=== PATIENT | female | born 1990 | race Caucasian/White ===

== ENCOUNTER 2018-10-16 12:45 | Emergency (ER) | payer OTHER ==
[~2018-10-16] VITALS: Ht 170.2 cm; Wt 92.1 kg
[2018-10-16] MEDS ORDERED: WELLBUTRIN 75 M75 M1 PO (13:12)
[2018-10-16] MEDS ORDERED: MEDROLDOSEPACK PO (15:26)
[2018-10-16] MEDS ORDERED: NABUMETONE 750750 M1 PO (15:26)
[2018-10-16] MEDS ORDERED: NORCO 5-325 TA1 EAC1 PO (15:26)
[2018-10-16] MEDS ORDERED: ZANAFLEX4 M1 PO (15:26)
[2018-10-16 15:41] VITALS: BP 124/79
== END 2018-10-16 15:42 | disposition home or self-care (01) ==
LOC: M.ERS 12:45
DX: M43.06 Spondylolysis, lumbar region (principal); F41.9 Anxiety disorder, unspecified; F32.9 Major depressive disorder, single episode, unspecified